=== PATIENT | male | born 1970 | race Caucasian/White ===

== ENCOUNTER 2018-02-01 08:38 | Outpatient (CLI) | payer BC ==
--- NOTE | 2018-02-01 11:45 | CT ---
CT ABDOMEN AND PELVIS WITH IV CONTRAST: HISTORY: Abdominal pain. Fever. FINDINGS: Lung bases are clear. Liver, spleen, kidneys, adrenal glands, and pancreas are within normal limits. Nonspecific lymph nodes scattered throughout the abdomen and pelvis. Lack of oral contrast limits evaluation of the bowel. No evidence of obstruction. Scattered diverti cula of the colon. Subtle circumferential wall thickening and adjacent fat stranding in the left low er quadrant at the junction of the left colon and sigmoid colon. IMPRESSION: Mild noncomplicated left lower quadrant diverticulitis. Findings were called to Dr. Ghotra at 0945 hours. CODE CR POS: [id number]
== END 2018-02-01 08:39 | disposition home or self-care (01) ==
LOC: SCSCT 08:38
PROVIDERS: ATTEND Family Medicine
DX: R19.02 Left upper quadrant abdominal swelling, mass and lump (principal); R10.9 Unspecified abdominal pain; K57.92 Diverticulitis of intestine, part unspecified, without perforation or abscess without bleeding
CPT/HCPCS: 74177